=== PATIENT | female | born 1955 | race African-American/Black ===

== ENCOUNTER 2016-10-07 10:57 | Emergency (ER) | payer OTHER ==
[2016-10-07 11:06] VITALS: BP 132/89
--- NOTE | 2016-10-07 11:19 | ER Document Report ---
ED Medical Screen (RME) - General Chief Complaint: Leg Swelling Stated Complaint: LEFT LEG SWELLING Notes: 61 yo female c/o left lower leg swelling x 2 days. + hx DVT in same leg 08/19 after bunionectomy. pt presently on xarelto. denies chest pain, shortness of breath. mild, dull ache to calf and foot. TRAVEL OUTSIDE OF THE [place] IN LAST 30 DAYS: No - Related Data Allergies/Adverse Reactions: No Known Allergies Allergy (Unverified 10/07/16 11:02) Past Medical History - Social History Chew tobacco use (# tins/day): No Frequency of alcohol use: None Drug Abuse: None Physical Exam - Vital signs Vitals: Temp Pulse Resp BP Pulse Ox 98.0 F 57 L 18 132/89 H 97 10/07/16 11:04 10/07/16 11:04 10/07/16 11:04 10/07/16 11:04 10/07/16 11:04 Course - Vital Signs Vital signs: Temp Pulse Resp BP Pulse Ox 98.0 F 57 L 18 132/89 H 97 10/07/16 11:04 10/07/16 11:04 10/07/16 11:04 10/07/16 11:04 10/07/16 11:04
[2016-10-07 11:51] LABS: ABSOLUTE EOSINOPHILS # (AUTO) 0.1 10^3/uL (0.0-0.6); ABSOLUTE LYMPHOCYTES (AUTO) 2.4 10^3/uL (0.5-4.7); ABSOLUTE MONOCYTES (AUTO) 0.4 10^3/uL (0.1-1.4); ABSOLUTE NEUT (AUTO) 2.6 10^3/uL (1.7-8.2); BASOPHILS % (AUTO) 0.7 % (0-2); HEMATOCRIT 43.2 % (36.0-47.0); HEMOGLOBIN 14.7 g/dL (12.0-15.5); HGB HCT DIFFERENCE 0.9; LYMPHOCYTES % (AUTO) 43.6 % (13-45); MEAN CORPUSCULAR HEMOGLOBIN 30.3 pg (27.0-33.4); MEAN CORPUSCULAR VOLUME 89 fl (80-97); RED BLOOD COUNT 4.85 10^6/uL (3.72-5.28); RED CELL DISTRIBUTION WIDTH 14.5 % (11.5-14.0); SEGMENTED NEUTROPHILS % (AUTO) 46.7 % (42-78); WHITE BLOOD COUNT 5.5 10^3/uL (4.0-10.5)
[2016-10-07 11:56] LABS: PROTHROMBIN TIME 17.6 SEC (11.4-15.4)
[2016-10-07 12:02] LABS: ALANINE AMINOTRANSFERASE 39 U/L (9-52); ALBUMIN 4.2 g/dL (3.5-5.0); ALKALINE PHOSPHATASE 92 U/L (38-126); ANION GAP 10 (5-19); ASPARTATE AMINO TRANSFERASE 53 U/L (14-36); BILIRUBIN,TOTAL 0.4 mg/dL (0.2-1.3); BLOOD UREA NITROGEN 15 mg/dL (7-20); CALCIUM 9.2 mg/dL (8.4-10.2); CARBON DIOXIDE 29 mmol/L (22-30); CHLORIDE 105 mmol/L (98-107); CREATININE RESULT 0.74 mg/dL (0.52-1.25); GLUCOSE 77 mg/dL (75-110); POTASSIUM 4.2 mmol/L (3.6-5.0); TOTAL PROTEIN 7.9 g/dL (6.3-8.2)
--- NOTE | 2016-10-07 12:12 | ER Document Report ---
ED Extremity Problem, Lower - General Chief Complaint: Leg Swelling Stated Complaint: LEFT LEG SWELLING TRAVEL OUTSIDE OF THE [place] IN LAST 30 DAYS: No - HPI Patient complains to provider of: Swelling Location: Leg Where: Home - Related Data Allergies/Adverse Reactions: No Known Allergies Allergy (Unverified 10/07/16 11:02) Past Medical History - Social History Smoking Status: Never Smoker Chew tobacco use (# tins/day): No Frequency of alcohol use: None Drug Abuse: None Family History: None Patient has suicidal ideation: No Patient has homicidal ideation: No Review of Systems - Review of Systems Constitutional: No symptoms reported EENT: No symptoms reported Cardiovascular: No symptoms reported Respiratory: No symptoms reported Gastrointestinal: No symptoms reported Genitourinary: No symptoms reported Female Genitourinary: No symptoms reported Musculoskeletal: No symptoms reported Skin: No symptoms reported Hematologic/Lymphatic: No symptoms reported Neurological/Psychological: No symptoms reported Physical Exam - Vital signs Vitals: Temp Pulse Resp BP Pulse Ox 98.0 F 57 L 18 132/89 H 97 10/07/16 11:04 10/07/16 11:04 10/07/16 11:04 10/07/16 11:04 10/07/16 11:04 Interpretation: Normal - General General appearance: Appears well, Alert - HEENT Head: Normocephalic, Atraumatic Eyes: Normal Pupils: PERRL - Respiratory Respiratory status: No respiratory distress Chest status: Nontender Breath sounds: Normal Chest palpation: Normal - Cardiovascular Rhythm: Regular Heart sounds: Normal auscultation Murmur: No - Abdominal Inspection: Normal Distension: No distension Bowel sounds: Normal Tenderness: Nontender Organomegaly: No organomegaly - Back Back: Normal, Nontender - Extremities General upper extremity: Normal inspection, Nontender, Normal color, Normal ROM , Normal temperature General lower extremity: Normal inspection, Nontender, Normal color, Normal ROM , Normal temperature, Normal weight bearing. No: Rani's sign Thigh: Tender - 1 x 3 cm tender inflammed area to lle medial and proximal to patella - Neurological Neuro grossly intact: Yes Cognition: Normal Orientation: AAOx4 Boswell Coma Scale Eye Opening: Spontaneous Harry Coma Scale Verbal: Oriented Harry Coma Scale Motor: Obeys Commands Harry Coma Scale Total: 15 Speech: Normal Motor strength normal: LUE, RUE, LLE, RLE Sensory: Normal - Psychological Associated symptoms: Normal affect, Normal mood - Skin Skin Temperature: Warm Skin Moisture: Dry Skin Color: Normal Course - Vital Signs Vital signs: Temp Pulse Resp BP Pulse Ox 98.0 F 57 L 18 132/89 H 97 10/07/16 11:04 10/07/16 11:04 10/07/16 11:04 10/07/16 11:04 10/07/16 11:04 - Laboratory Result Diagrams: 10/07/16 11:20 10/07/16 11:20 Laboratory results interpreted by me: 10/07/16 10/07/16 10/07/16 11:20 11:20 11:20 RDW 14.5 H PT 17.6 H AST 53 H - Diagnostic Test Radiology reviewed: Reports reviewed - per tech Discharge - Discharge Clinical Impression: Hematoma and contusion Disposition: HOME, SELF-CARE Additional Instructions: Warm compresses 4-5 times a day follow-up with PMD in 2-3 Follow-up with private doctor in 1 to 2 days for final radiology readings please return to the emergency room for any change worsening condition. Follow up with private M.D. for all other routine health care needs.
--- NOTE | 2016-10-07 16:40 | XCELERA REPORT ---
[address] [address] Lower Extremity Venous Evaluation Name: JULITA PETERS Age: 61 yrs Gender: Female : 1955 Patient Status: Preadmit Patient Location: ER Study Date: 10/07/2016 11:38 AM Procedure: Color flow and duplex imaging of the veins of the left lower extremity as well as the right Common Femoral vein. Reason For Study: left lower leg swelling, + hx DVT 08/19 Ordering Physician: SHANA ORDONEZ Performed By: Augustine Kaur Right Sided Venous Evaluation The right common femoral vein is fully compressible. Spontaneous and phasic flow is present in the right common femoral vein. Left Sided Venous Evaluation Abnormal vessel filling , compression with some flow in the distal Femoral vein and Popliteal vein. A non vascular Popliteal mass is noted in the Popliteal fossa, consistent with a complex cyst. Otherwise normal Colour flow down to the infrageniculate veins. 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 : SHANA ORDONEZ > [facility]
== END 2016-10-07 12:10 | disposition home or self-care (01) ==
LOC: ER 10:57
DX: M79.89 Other specified soft tissue disorders (principal)
CPT/HCPCS: 36415; 80053; 85025; 85610; 93971; 99284